=== PATIENT | female | born 1970 | race Caucasian/White ===

== ENCOUNTER 2017-08-12 19:28 | Emergency (ER) | payer BC ==
[2017-08-12 20:09] LABS: URINE APPEARANCE CLEAR; URINE BILIRUBIN NEGATIVE (NEGATIVE); URINE BLOOD TRACE-I (NEGATIVE); URINE COLOR YELLOW; URINE GLUCOSE (UA) NEGATIVE (NEGATIVE); URINE KETONE NEGATIVE (NEGATIVE); URINE LEUKOCYTE ESTERASE NEGATIVE (NEGATIVE); URINE NITRITE NEGATIVE (NEGATIVE); URINE PROTEIN NEGATIVE (NEGATIVE); URINE UROBILINOGEN 0.2 E.U./dL (0.20 - 1.00)
--- NOTE | 2017-08-12 20:13 | Emergency Department Record ---
History of Present Illness - General Chief complaint: Female Urogenital Problem Stated complaint: UTI? Time Seen by Provider: 08/12/17 19:43 Source: Patient Mode of Arrival: Ambulatory Limitations: No limitations - History of Present Illness Initial comments: 46 yo female presents to ED for evaluation of burning with urination that began this morning. Patient denies fevers, chills, flank or abdominal pains symptoms. Patient reports that she was recently diagnosed with DM in October of last year, yeast infection was her presenting symptom at that time. Patient reports similar symptoms related to both a UTI as well as a yeast infection. MD Complaint: Dysuria Onset/Timin -: Days(s) Severity: Mild Severity scale (1-10): 4 Quality: Burning Consistency: Intermittent Improves with: None Worsens with: None Associated Symptoms: Denies other symptoms - Related Data Sexually active: No Previous Rx's Medication Instructions Recorded Fluconazole [Diflucan] 150 mg PO ONCE #1 tab 08/12/17 Allergies Allergy/AdvReac Type Severity Reaction Status Date / Time No Known Drug Allergies Allergy Unverified 05/08/17 07:21 Travel Screening - Travel/Exposure Within Last 30 Days Have you traveled within the last 30 days?: No Review of Systems Constitutional: Denies: Chills, Fever, Malaise, Night sweats Eyes: Denies: Eye discharge, Eye pain ENT: Denies: Congestion, Ear pain, Epistaxis Respiratory: Denies: Cough, Dyspnea Cardiovascular: Denies: Chest pain, Dyspnea on exertion Endocrine: Denies: Fatigue, Heat or cold intolerance Gastrointestinal: Denies: Abdominal pain, Nausea, Vomiting Genitourinary: Reports: Dysuria. Denies: Incontinence, Retention Musculoskeletal: Denies: Arthralgia, Back pain, Gout, Joint swelling Skin: Denies: Bruising, Change in color Neurological: Denies: Abnormal gait, Confusion, Headache, Seizure Psychiatric: Denies: Anxiety Hematological/Lymphatic: Denies: Anemia, Blood Clots Past Medical History - SOCIAL HISTORY Smoking Status: Never smoker Alcohol Use: None Drug Use: None - RESPIRATORY Hx Respiratory Disorders: No - CARDIOVASCULAR Hx Cardio Disorders: No - NEURO Hx Neuro Disorders: No - GI Hx GI Disorders: No - Hx Genitourinary Disorders: No - ENDOCRINE Hx Endocrine Disorders: Yes Hx Diabetes: Yes (DM2) - MUSCULOSKELETAL Hx Musculoskeletal Disorders: No - PSYCH Hx Psych Problems: No - HEMATOLOGY/ONCOLOGY Hx Hematology/Oncology Disorders: No Family Medical History Any Significant Family History?: Yes Hx Diabetes: Mother Physical Exam - General General Appearance: Alert, Oriented x3, Cooperative, Mild distress Limitations: No limitations - Head Head exam: Atraumatic, Normocephalic, Normal inspection Head exam detail: negative: Abrasion, Contusion, March's sign, General tenderness, Hematoma, Laceration - Eye Eye exam: Normal appearance. negative: Conjunctival injection, Periorbital swelling, Periorbital tenderness, Scleral icterus - ENT Ear exam: negative: Auricular hematoma, Auricular trauma Nasal Exam: negative: Active bleeding, Discharge, Dried blood, Foreign body Mouth exam: negative: Drooling, Laceration, Muffled voice, Tongue elevation - Neck Neck exam: Normal inspection. negative: Meningismus, Tenderness - Respiratory Respiratory exam: Normal lung sounds bilaterally. negative: Rales, Respiratory distress, Rhonchi, Stridor - Cardiovascular Cardiovascular Exam: Regular rate, Normal rhythm, Normal heart sounds - GI/Abdominal GI/Abdominal exam: Soft. negative: Rebound, Rigid, Tenderness - Rectal Rectal exam: Deferred - exam: Deferred - Extremities Extremities exam: Normal inspection. negative: Calf tenderness, Pedal edema, Tenderness - Back Back exam: Denies: CVA tenderness (R), CVA tenderness (L) - Neurological Neurological exam: Alert, Normal gait, Oriented X3 - Psychiatric Psychiatric exam: Normal affect, Normal mood - Skin Skin exam: Normal color. negative: Abrasion Type of lesion: negative: abrasion Course Vital Signs 08/12/17 19:47 Temperature 98.4 F Pulse Rate 89 Respiratory 18 Rate Blood Pressure 140/80 Pulse Ox 99 - Reevaluation(s) Reevaluation #1: 08/12/17 20:31 UA reviewed and appears negative for infection, no glucose present. Will treat with Diflucan with a repeat dose in 3 days if symptoms persist. Patient agrees with the plan as discussed. Patient appears stable for discharge at this time. Disposition Disposition: Discharge Clinical Impression: Vaginal yeast infection Disposition: Home, Self-Care Condition: (2) Stable Instructions: Vulvovaginal Candidiasis (ED) Additional Instructions: Return to ED if your symptoms worsen or if you have any concerns. Diflucan as directed. Follow-up with your family doctor in 3-5 days as directed. Prescriptions: Fluconazole [Diflucan] 150 mg PO ONCE #1 tab Forms: Patient Portal Access Time of Disposition: 20:33 Quality - Quality Measures Quality Measures: N/A - Blood Pressure Screening Does Patient Have Any of the Following: No Blood Pressure Classification: Pre-Hypertensive BP Reading Systolic Measurement: 140 Diastolic Measurement: 80 Screening for High Blood Pressure: < Pre-Hypertensive BP, F/U Documented > [ G8950] Pre-Hypertensive Follow-up Interventions: Referral to alternative/primary care provider.
[2017-08-12 20:26] LABS: URINE EPITHELIAL CELLS 0 - 2 (FEW); URINE RBC 0-2 (NONE SEEN); URINE WBC 0 - 2 (0-2/hpf)
[2017-08-12] MEDS ORDERED: FLUCONAZOLE 100 MG TABLET PO ONE (20:33)
== END 2017-08-12 21:09 | disposition home or self-care (01) ==
LOC: ER 19:28
DX: B37.3 Candidiasis of vulva and vagina (principal)
CPT/HCPCS: 81001; 99282

== ENCOUNTER 2018-10-08 07:47 | Emergency (ER) | payer BC ==
[2018-10-08] MEDS ORDERED: ASPIRIN 81 MG CHEWABLE TABLET PO ONE (08:05)
--- NOTE | 2018-10-08 08:17 | Emergency Department Record ---
History of Present Illness - General Chief Complaint: Palpitations Stated Complaint: PALPITATIONS Time Seen by Provider: 10/08/18 07:54 Source: Patient Mode of Arrival: Ambulatory Limitations: No limitations - History of Present Illness Initial Comments: pt has had palpitations intermittently for 2 years since she started going through menopause. they have gotten worse recently and today it scared her. she has been under a lot of stress recently. she stopped drinking diet coke 2 days ago. she also had intermittent epigastric pain but has none now. no sob, no lightheadedness, no diaphoresis. MD Complaint: Palpitations Context: Occurred during rest Associated Symptoms: Denies other symptoms - Related Data Allergies Allergy/AdvReac Type Severity Reaction Status Date / Time No Known Drug Allergies Allergy Verified 10/08/18 07:56 Travel Screening - Travel/Exposure Within Last 30 Days Have you traveled within the last 30 days?: No Review of Systems Reviewed: No additional complaints except as noted below Constitutional: Reports: As per HPI. Denies: Chills, Fever, Malaise, Night sweats, Weakness, Weight change Eyes: Reports: As per HPI. Denies: Eye discharge, Eye pain, Photophobia, Vision change ENT: Reports: As per HPI. Denies: Congestion, Dental pain, Ear pain, Epistaxis , Hearing loss, Throat pain Respiratory: Reports: As per HPI. Denies: Cough, Dyspnea, Hemoptysis, Stridor, Wheezes Cardiovascular: Reports: As per HPI, Palpitations. Denies: Arrhythmia, Chest pain, Dyspnea on exertion, Edema, Murmurs, Orthopnea, Paroxysmal nocturnal dyspnea, Rheumatic Fever, Syncope Endocrine: Reports: As per HPI. Denies: Fatigue, Heat or cold intolerance, Polydipsia, Polyuria Gastrointestinal: Reports: As per HPI. Denies: Abdominal pain, Constipation, Diarrhea, Hematemesis, Hematochezia, Melena, Nausea, Vomiting Genitourinary: Reports: As per HPI. Denies: Abnormal menses, Discharge, Dyspareunia, Dysuria, Frequency, Hematuria, Incontinence, Retention, Urgency Musculoskeletal: Reports: As per HPI. Denies: Arthralgia, Back pain, Gout, Joint swelling, Myalgia, Neck pain Skin: Reports: As per HPI. Denies: Bruising, Change in color, Change in hair/ nails, Lesions, Pruritus, Rash Neurological: Reports: As per HPI. Denies: Abnormal gait, Confusion, Headache, Numbness, Paresthesias, Seizure, Tingling, Tremors, Vertigo, Weakness Psychiatric: Reports: As per HPI. Denies: Anxiety, Auditory hallucinations, Depression, Homicidal thoughts, Suicidal thoughts, Visual hallucinations Hematological/Lymphatic: Reports: As per HPI. Denies: Anemia, Blood Clots, Easy bleeding, Easy bruising, Swollen glands Past Medical History - SOCIAL HISTORY Smoking Status: Never smoker Alcohol Use: None Drug Use: None - RESPIRATORY Hx Respiratory Disorders: No - CARDIOVASCULAR Hx Cardio Disorders: No - NEURO Hx Neuro Disorders: No - GI Hx GI Disorders: No - Hx Genitourinary Disorders: No - ENDOCRINE Hx Endocrine Disorders: Yes Hx Diabetes: Yes (DM2) - MUSCULOSKELETAL Hx Musculoskeletal Disorders: No - PSYCH Hx Psych Problems: Yes Hx Anxiety: Yes Hx Depression: Yes - HEMATOLOGY/ONCOLOGY Hx Hematology/Oncology Disorders: No Family Medical History Any Significant Family History?: Yes Hx Diabetes: Mother Physical Exam - General General Appearance: Alert, Oriented x3, Cooperative, Mild distress - Head Head exam: Normal inspection - Eye Eye exam: Normal appearance, PERRL, EOMI Pupils: Normal accommodation - ENT ENT exam: Normal exam, Mucous membranes moist, Normal external ear exam, Normal orophraynx Ear exam: Normal external inspection. negative: External canal tenderness Nasal Exam: Normal inspection. negative: Discharge, Sinus tenderness Mouth exam: Normal external inspection, Tongue normal Teeth exam: Normal inspection. negative: Dental caries Throat exam: Normal inspection. negative: Tonsillar erythema, Tonsillar exudate - Neck Neck exam: Normal inspection, Full ROM. negative: Tenderness - Respiratory Respiratory exam: Normal lung sounds bilaterally. negative: Respiratory distress - Cardiovascular Cardiovascular Exam: Regular rate, Normal rhythm, Normal heart sounds - GI/Abdominal GI/Abdominal exam: Soft, Normal bowel sounds. negative: Tenderness - Rectal Rectal exam: Deferred - exam: Deferred - Extremities Extremities exam: Normal inspection, Full ROM, Normal capillary refill. negative: Tenderness - Back Back exam: Reports: Normal inspection, Full ROM. Denies: Muscle spasm, Rash noted, Tenderness - Neurological Neurological exam: Alert, CN II-XII intact, Normal gait, Oriented X3 - Psychiatric Psychiatric exam: Normal affect, Normal mood - Skin Skin exam: Dry, Intact, Normal color, Warm Course Vital Signs 10/08/18 07:50 Temperature 97.9 F Pulse Rate 117 H Respiratory 20 Rate Blood Pressure 141/100 Pulse Ox 99 Medical Decision Making - Lab Data Result diagrams: 10/08/18 08:12 10/08/18 08:12 Disposition Disposition: Discharge Clinical Impression: Heart palpitations Disposition: Home, Self-Care Condition: (1) Good Instructions: Heart Palpitations (ED) Additional Instructions: follow up with family doctor . return sooner if worse. no caffeine, no energy drinks Forms: Patient Portal Access Quality - Quality Measures Quality Measures: N/A - Blood Pressure Screening Does Patient Have Any of the Following: No Blood Pressure Classification: Hypertensive Reading Systolic Measurement: 141 Diastolic Measurement: 100 Screening for High Blood Pressure: < First Hypertensive BP, F/U Documented > [ G8950] First Hypertensive Follow-up Interventions: Follow-up with rescreen GT 1 day and LT 4 weeks.
[2018-10-08 08:22] LABS: BASO % 0.2 % (0-6); EOS % 0.7 % (0-6); GRAN % 47.8 % (47-80); HEMATOCRIT 45.5 % (35.0-47.0); HEMOGLOBIN 16.1 gm/dl (11.6-16.0); LYMPH % 45.7 % (16-45); MEAN CELL VOLUME 85.5 fl (81-97); MEAN CORPUSCULAR HEMOGLOBIN 30.2 pg (27-33); MEAN CORPUSCULAR HGB CONC 35.4 g/dl (32-36); MEAN PLATELET VOLUME 9.9 fl (7.4-10.4); MONO % 5.6 % (0-9); PLATELET COUNT 265 K/uL (130-400); RED BLOOD COUNT 5.32 M/uL (3.80-5.40); RED CELL DISTRIBUTION WIDTH 12.4 % (11.5-14.5); WHITE BLOOD COUNT W/O DIFF 8.2 K/uL (4.2-12.2)
[2018-10-08 10:09] LABS: BLOOD UREA NITROGEN 12 mg/dL (6-20); CREATININE 0.7 mg/dL (0.5-0.9); EST GLOMERULAR FILTRATION RATE > 60 mL/min
[2018-10-08 10:10] LABS: TOTAL PROTEIN 7.8 g/dL (6.6-8.7)
[2018-10-08 10:12] LABS: GLUCOSE,RANDOM 189 mg/dL (74-109)
[2018-10-08 10:15] LABS: ALB/GLOB RATIO 1.6 (1.1-1.8); ALBUMIN 4.8 g/dL (4.0-5.0); ALKALINE PHOSPHATASE 87 U/L (35-104); ALT/SGPT 23 U/L (<33); AST/SGOT 15 U/L (10.0-35.0); CREATINE PHOSPHOKINASE 44 U/L (26-192)
[2018-10-08 10:49] LABS: CKMB 1.1 ng/mL (<3.77)
[2018-10-08 10:55] LABS: THYROID STIMULATING HORMONE 4.59 uIU/mL (0.270-4.20)
[2018-10-08 11:50] LABS: THYROXINE (T4) 8.77 ug/dL (4.5-11.7)
--- NOTE | 2018-10-08 14:48 | RADIOLOGY REPORT ---
EXAM: CHEST, TWO VIEWS HISTORY: DIFFICULTY IN BREATHING. TECHNIQUE: Frontal and lateral views of the chest were performed. FINDINGS: The heart size is normal. The lung parsons are clear. No infiltrate or pleural effusion. The osseous structures are normal. IMPRESSION: NEGATIVE CHEST EXAMINATION. JOB NUMBER: [id number] MTDD
== END 2018-10-08 12:27 | disposition home or self-care (01) ==
LOC: ER 07:47
DX: R00.2 Palpitations (principal); R06.00 Dyspnea, unspecified; E11.9 Type 2 diabetes mellitus without complications
CPT/HCPCS: 71046; 80053; 82550; 82553; 84436; 84443; 84479; 84484; 85025; 85379; 93005; 93010; 93225; 93226; 99284

== ENCOUNTER 2020-01-08 06:04 | Emergency (ER) | payer BC ==
[2020-01-08] MEDS ORDERED: KETOROLAC 30 MG/ML VIAL IVP ONE (06:25)
[2020-01-08] MEDS ORDERED: 0.9 % SODIUM CHLORIDE 1000ML 1,000 ML IV SCH (06:30)
--- NOTE | 2020-01-08 06:31 | Emergency Department Record ---
History of Present Illness - General Chief Complaint: Back Pain/Injury Stated Complaint: BACK/SIDE PAIN Time Seen by Provider: 01/08/20 06:20 Source: Patient Mode of Arrival: Ambulatory Limitations: No limitations - History of Present Illness Initial Comments: 49 yo female presents to ED for evaluation of left-sided flank and abdominal pain symptoms that began "2 weeks ago". Patient reports that pain symptoms began after picking up her cleaning cart that had tipped over. Patient denies urinary symptoms, fevers, chills, or history of kidney stones. Patient also denies taking anything for her pain symptoms at home. Patient does report a history of DM at her baseline, denies previous abdominal pain symptoms. MD Complaint: Back pain Onset/Timin -: Week(s) Similar Symptoms Previously: Yes Place: Work Radiation: Abdomen, Right leg Severity: Moderate Severity scale (1-10): 10 Quality: Aching Consistency: Constant Improves With: Walking Worsens With: Sitting upright Context: While lifting Associated Symptoms: Denies other symptoms Treatment Prior to Arrival Comment:: none - Related Data Previous Rx's Medication Instructions Recorded Cephalexin [Keflex] 500 mg PO TID #20 cap 01/08/20 Allergies Allergy/AdvReac Type Severity Reaction Status Date / Time No Known Drug Allergies Allergy Verified 01/08/20 06:15 Travel/Exposure Screening - Travel/Exposure Within Last 30 Days Have you traveled within the last 30 days?: No - Travel/Exposure Within Last Year Have you traveled outside the [place] in the last year?: No - Additonal Travel/Exposure Details Have you been exposed to anyone with a communicable illness?: No - Travel Symptoms Symptom Screening: None Review of Systems Constitutional: Denies: Chills, Fever, Malaise, Night sweats Eyes: Denies: Eye discharge, Eye pain ENT: Denies: Congestion, Ear pain, Epistaxis Respiratory: Denies: Cough, Dyspnea Cardiovascular: Denies: Chest pain, Dyspnea on exertion Endocrine: Denies: Fatigue, Heat or cold intolerance Gastrointestinal: Reports: Abdominal pain. Denies: Constipation, Nausea, Vomiting Genitourinary: Denies: Incontinence, Retention Musculoskeletal: Reports: Back pain. Denies: Arthralgia, Gout, Joint swelling Skin: Denies: Bruising, Change in color Neurological: Denies: Abnormal gait, Confusion, Headache, Seizure Psychiatric: Denies: Anxiety Hematological/Lymphatic: Denies: Anemia, Blood Clots Past Medical History - SOCIAL HISTORY Smoking Status: Never smoker Alcohol Use: None Drug Use: Heavy Drug Use Detail:: Marijuana - RESPIRATORY Hx Respiratory Disorders: No - CARDIOVASCULAR Hx Cardio Disorders: No - NEURO Hx Neuro Disorders: No - GI Hx GI Disorders: No - Hx Genitourinary Disorders: No - ENDOCRINE Hx Endocrine Disorders: Yes Hx Diabetes: Yes (DM2) Hx Thyroid Disease: No - MUSCULOSKELETAL Hx Musculoskeletal Disorders: No - PSYCH Hx Psych Problems: Yes Hx Anxiety: Yes Hx Depression: Yes - HEMATOLOGY/ONCOLOGY Hx Hematology/Oncology Disorders: No Family Medical History Any Significant Family History?: No Hx Diabetes: Mother Physical Exam - General General Appearance: Alert, Oriented x3, Cooperative, Anxious, Other (Patient appears anxious and tearful on examination) Limitations: No limitations - Head Head exam: Atraumatic, Normocephalic, Normal inspection Head exam detail: negative: Abrasion, Contusion, March's sign, General tenderness, Hematoma, Laceration - Eye Eye exam: Normal appearance. negative: Conjunctival injection, Periorbital swelling, Periorbital tenderness, Scleral icterus - ENT Ear exam: negative: Auricular hematoma, Auricular trauma Nasal Exam: negative: Active bleeding, Discharge, Dried blood, Foreign body Mouth exam: negative: Drooling, Laceration, Muffled voice, Tongue elevation - Neck Neck exam: Normal inspection. negative: Meningismus, Tenderness - Respiratory Respiratory exam: Normal lung sounds bilaterally. negative: Rales, Respiratory distress, Rhonchi, Stridor - Cardiovascular Cardiovascular Exam: Regular rate, Normal rhythm, Normal heart sounds - GI/Abdominal GI/Abdominal exam: Soft. negative: Rebound, Rigid, Tenderness - Rectal Rectal exam: Deferred - exam: Deferred - Extremities Extremities exam: Normal inspection. negative: Calf tenderness, Pedal edema, Tenderness - Back Back exam: Reports: CVA tenderness (R). Denies: CVA tenderness (L) - Neurological Neurological exam: Alert, Normal gait, Oriented X3 - Psychiatric Psychiatric exam: Normal affect, Normal mood - Skin Skin exam: Normal color. negative: Abrasion Type of lesion: negative: abrasion Course Vital Signs 01/08/20 06:09 Temperature 98.3 F Pulse Rate [ 87 Pulse Ox Probe] Respiratory 20 Rate Blood Pressure 133/92 [Left Arm] Pulse Ox 100 - Reevaluation(s) Reevaluation #1: 01/08/20 07:27 Laboratory studies were reviewed and appear gross unremarkable for an acute process except for the following: UA demonstrates: 3-6 RBCs 3-5 WBCs 2-6 Epithelial cells 2+ Bacteria CT Abdomen and Pelvis: Mild right hydronephrosis, no obstructing calculus is present Complex mass right pelvis, uterine vs. adenexal origin, recommend pelvic MRI for further evaluation. Sigmoid diverticulosis MDM: Patient was updated on all results, reports improvement in her pain symptoms following Toradol administration. Reviewed patient's UA/CT findings with mild hydronephrosis present right History and examination are not c/w ovarian torsion due to pelvic mass (pain for 2 weeks, patient does not appear in moderate-severe pain on examination). Will treat with Keflex for possible early pyelonephritis. I reviewed the patient's CT findings concerning for pelvic mass and recommended follow-up with her PCP for further evaluation in 3-5 days. Copy of the patient's report was also given to the patient to review with her PCP. Patient appears stable for discharge at this time. Medical Decision Making - Lab Data Result diagrams: 01/08/20 06:33 01/08/20 06:33 Disposition Disposition: Discharge Clinical Impression: Pyelonephritis, Pelvic mass Disposition: Home, Self-Care Condition: (2) Stable Instructions: Kidney Infection (ED) Additional Instructions: Return to ED if your symptoms worsen or if you have any concerns. Keflex and Ibuprofen as needed. Follow-up with your family doctor in 3-5 days for review of your CT imaging findings re: pelvic mass for further evaluation with outpatient MRI. Prescriptions: Cephalexin [Keflex] 500 mg PO TID #20 cap Forms: Patient Portal Access Time of Disposition: 07:33 Quality - Quality Measures Quality Measures: N/A - Blood Pressure Screening Does Patient Have Any of the Following: No Blood Pressure Classification: Hypertensive Reading Systolic Measurement: 133 Diastolic Measurement: 92 Screening for High Blood Pressure: < First Hypertensive BP, F/U Documented > [G8950] First Hypertensive Follow-up Interventions: Referral to alternative/primary care provider.
[2020-01-08 06:42] LABS: ABSOLUTE NEUTROPHIL COUNT 6.02; BASO % 0.1 % (0-6); EOS % 0.4 % (0-6); GRAN % 75.4 % (47-80); HEMATOCRIT 42.9 % (35.0-47.0); HEMOGLOBIN 14.7 gm/dl (11.6-16.0); LYMPH % 18.3 % (16-45); MEAN CELL VOLUME 88.5 fl (81-97); MEAN CORPUSCULAR HEMOGLOBIN 30.3 pg (27-33); MEAN CORPUSCULAR HGB CONC 34.3 g/dl (32-36); MONO % 5.8 % (0-9); PLATELET COUNT 155 K/uL (130-400); RED BLOOD COUNT 4.85 M/uL (3.80-5.40); RED CELL DISTRIBUTION WIDTH 12.7 % (11.5-14.5)
[2020-01-08 06:54] LABS: BLOOD UREA NITROGEN 10 mg/dL (6-20); CREATININE 0.6 mg/dL (0.5-0.9); EST GLOMERULAR FILTRATION RATE > 60 mL/min
[2020-01-08 06:55] LABS: LIPASE 38 U/L (13-60); TOTAL PROTEIN 6.9 g/dL (6.6-8.7)
[2020-01-08 06:57] LABS: GLUCOSE,RANDOM 188 mg/dL (74-109)
[2020-01-08 06:59] LABS: ALB/GLOB RATIO 1.6 (1.1-1.8); ALBUMIN 4.2 g/dL (4.0-5.0); ALT/SGPT 22 U/L (<33); AST/SGOT 12 U/L (10.0-35.0)
[2020-01-08 07:00] LABS: ALKALINE PHOSPHATASE 75 U/L (35-104)
[2020-01-08 07:15] LABS: URINE APPEARANCE SL CLOUDY; URINE BILIRUBIN NEGATIVE (NEGATIVE); URINE BLOOD SMALL (NEGATIVE); URINE COLOR YELLOW; URINE GLUCOSE (UA) NEGATIVE (NEGATIVE); URINE KETONE NEGATIVE (NEGATIVE); URINE LEUKOCYTE ESTERASE TRACE (NEGATIVE); URINE NITRITE NEGATIVE (NEGATIVE); URINE PROTEIN TRACE (NEGATIVE); URINE UROBILINOGEN 0.2 E.U./dL (0.20 - 1.00)
[2020-01-08 07:23] LABS: URINE BACTERIA 2+; URINE MUCUS LIGHT
--- NOTE | 2020-01-08 07:24 | CT SCAN REPORT ---
EXAMINATION: CT Abdomen and Pelvis without IV Contrast EXAM DATE: 01/08/2020 7:06 AM TECHNIQUE: Standard protocol CT imaging of the abdomen and pelvis was performed without intravenous c ontrast. INDICATION: Left flan/lower abdominal pain COMPARISON: None ENCOUNTER: Not applicable CT ABDOMEN AND PELVIS FINDINGS: Lung Bases: Included extent of the lung bases are clear. Hepatobiliary: The liver has a normal size with a smooth surface. Multiple hepatic cysts largest darian sures 2.5 cm left lobe. Normal gallbladder. Pancreas: The pancreas is normal. Spleen: The spleen is not enlarged. Adrenals: The adrenal glands are normal. Kidneys, Ureters, & Bladder: No renal or ureteral calculi. Mild right hydronephrosis. No obstructing calculus. Follow-up retrograde pyelogram as clinically directed. Unremarkable bladder. Gastrointestinal: The stomach and small bowel are normal with no obstruction or inflammation. Normal appendix. Mild sigmoid diverticulosis. No diverticulitis Reproductive Organs: Large complex right pelvic mass abutting the uterine fundus measuring 10.2 x 9.9 x 9.6 cm greatest transverse dimensions. May represent a large pedunculated fibroid. Adnexal mass no t excluded. Follow-up pelvic MRI for further characterization as clinically directed. Lymphatic System: There is no adenopathy within the abdomen or pelvis. Vasculature: Normal caliber abdominal aorta Peritoneum: No free fluid, free air, or inflammation Abdominal wall & Musculoskeletal: No suspicious bone lesions. Assessment of the solid organs, soft tissues, and vascular structures is overall limited on noncontra st imaging, IMPRESSION: 1. Multiple hepatic cysts 2. Mild right hydronephrosis. No obstructing calculus 3. Large complex right pelvic mass abutting uterine fundus. May represent a complex pedunculated fibr oid. Adnexal mass not excluded. Follow-up pelvic MRI for further characterization as clinically direc luis antonio 4. Mild sigmoid diverticulosis NOTE: There is a follow-up recommendation in this report. Dictated by: Deangelo Dolan MD on 01/08/2020 7:12 AM. .
[2020-01-08] MEDS ORDERED: CEPHALEXIN 500 MG CAPSULE PO STA (07:33)
== END 2020-01-08 07:58 | disposition home or self-care (01) ==
LOC: ER 06:04
DX: R19.09 Other intra-abdominal and pelvic swelling, mass and lump (principal); N10 Acute pyelonephritis; N13.30 Unspecified hydronephrosis; M54.5 Low back pain; K57.30 Diverticulosis of large intestine without perforation or abscess without bleeding; E11.9 Type 2 diabetes mellitus without complications
CPT/HCPCS: 74176; 80053; 81001; 83690; 85025; 96374; 99284; J1885; J7030